=== PATIENT | male | born 2000 ===

== ENCOUNTER 2018-01-17 07:40 | Emergency (ER) | payer OTHER ==
--- NOTE | 2018-01-17 08:25 | UC ---
Throat Pain/Nasal Jorge HPI - HPI Summary HPI Summary: The patient is 17-year-old male who has been ill with a sore throat for about a week and a half. He may be running a fever from time to time. It is getting progressively more hard for him to swallow. He has noted swollen glands that have been worsening over the past few days. As no abdominal pain. He has no nausea vomiting or diarrhea. He has not had mono. - History of Current Complaint Chief Complaint: UCRespiratory Stated Complaint: SORE THROAT Time Seen by Provider: 01/17/18 08:00 Hx Obtained From: Patient Onset/Duration: Gradual Onset, Lasting Days - 10 Severity: Moderate Pain Intensity: 7 Pain Scale Used: 0-10 Numeric Associated Signs & Symptoms: Positive: Fever - Allergies/Home Medications Allergies/Adverse Reactions: Allergies Allergy/AdvReac Type Severity Reaction Status Date / Time cefad[place] [facility] [place]ergy Hives Verified 01/17/18 07:56 gluten Allergy GI Upset Verified 01/17/18 07:56 NSAIDS (Non-Steroidal Allergy Hives Verified 01/17/18 07:56 Anti-Inflamma nut - unspecified Allergy Anaphylatic Verified 01/17/18 07:56 Shock soy Allergy GI Upset Verified 01/17/18 07:56 Home Medications: Home Medications EPINEPHrine [Epipen] 1 unit IM ONCE PRN 01/17/18 [History Confirmed 01/17/18] Syringe with Needle, 1 ml [Allergy Syringe] 1 unit IM MONTHLY 01/17/18 [History Confirmed 01/17/18] PMH/Surg Hx/FS Hx/Imm Hx Previously Healthy: Yes - Surgical History Surgical History: None - Family History Known Family History: Positive: Hypertension - Social History Alcohol Use: None Substance Use Type: None Smoking Status (MU): Never Smoked Tobacco Review of Systems Constitutional: Fever, Fatigue Skin: Negative Eyes: Negative ENT: Sore Throat Respiratory: Negative Cardiovascular: Negative Gastrointestinal: Negative Genitourinary: Negative Motor: Negative Neurovascular: Negative Musculoskeletal: Negative Neurological: Negative Psychological: Negative All Other Systems Reviewed And Are Negative: Yes Physical Exam Triage Information Reviewed: Yes Appearance: Well-Appearing, No Pain Distress, Well-Nourished Vital Signs: Initial Vital Signs Temp 98.1 F 01/17/18 07:50 Pulse 95 01/17/18 07:50 Resp 18 01/17/18 07:50 BP 144/88 01/17/18 07:50 Pulse Ox 99 01/17/18 07:50 Eyes: Positive: Conjunctiva Clear ENT: Positive: Hearing grossly normal, TMs normal, Tonsillar swelling, Tonsillar exudate, Uvula midline. Negative: Nasal congestion, Nasal drainage, Trismus, Muffled voice, Hoarse voice, Sinus tenderness Dental Exam: Normal Neck: Positive: Supple, Enlarged Nodes @ - ant and post cervical Respiratory: Positive: Lungs clear, Normal breath sounds, No respiratory distress, No accessory muscle use Cardiovascular: Positive: RRR, No Murmur Abdomen Description: Positive: Nontender, No Organomegaly, Soft, Hepatomegaly, Splenomegaly. Negative: CVA Tenderness (R), CVA Tenderness (L), Distended, Guarding Bowel Sounds: Positive: Present Musculoskeletal: Positive: Strength Intact, ROM Intact Neurological: Positive: Alert, Muscle Tone Normal Psychological Exam: Normal Skin Exam: Normal Diagnostics - Laboratory Diagnostic Studies Completed/Ordered: strep x three: invalid Throat Pain/Nasal Course/Dx - Differential Dx/Diagnosis Provider Diagnoses: acute tonsillitis. suspect viral. suspect MONO Discharge - Sign-Out/Discharge Documenting (check all that apply): Patient Departure All imaging exams completed and their final reports reviewed: No Studies - Discharge Plan Condition: Stable Disposition: HOME Patient Education Materials: Tonsillitis (ED), Mononucleosis (ED) Referrals: No Primary Care Phys,NOPCP [Primary Care Provider] - Additional Instructions: I suspect mono blood work is pending a throat culture is pending rest fluids tylenol or advil for pain warm salt water gargles chloreseptic spray may help recheck for new or worsening symptoms you BP is a little high here recheck in 2-12 weeks your pattern of swollen glands is typical for a viral tonsillitis like MONO - Billing Disposition and Condition Condition: STABLE Disposition: Home
[2018-01-17 09:46] VITALS: BP 144/75
[2018-01-17 12:54] LABS: Hematocrit 45 % (42-52); Hemoglobin 14.7 g/dl (14.0-18.0); Mean Corpuscular HGB Conc 33 g/dl (31-36); Mean Corpuscular Hemoglobin 28 pg (27-31); Mean Corpuscular Volume 86 fL (80-94); Mean Platelet Volume 9.4 um3 (7.4-10.4); Platelet Count 197 10^3/ul (150-450); Red Blood Count 5.21 10^6/ul (4.00-5.40); Red Cell Distribution Width 13 % (10.5-15); White Blood Count 14.4 10^3/ul (3.5-10.8)
[2018-01-17 14:17] LABS: ABS Basophils 0.1 10^3/ul (0-0.2); ABS Eosinophils 0.1 10^3/ul (0-0.6); ABS Lymphocytes 5.5 10^3/ul (1.0-4.8); ABS Neutrophils 6.7 10^3/ul (1.5-7.7)
[2018-01-17 14:20] LABS: ABS Basophils 0 10^3/ul (0-0.2); ABS Neutrophils 5.5 10^3/ul (1.5-7.7); Monocytes % 9 % (0-7)
--- NOTE | 2018-01-18 10:26 | UC ---
- Progress Note Progress Note: Blood work came back from January 17, 2018 showing a positive Monospot. The white blood cell count was also elevated at 14.4 thousand and some elevated lymphocytes also consistent with mononucleosis. Nursing to call the patient and let him know that he is mononucleosis. Discharge - Sign-Out/Discharge Documenting (check all that apply): Patient Departure All imaging exams completed and their final reports reviewed: No Studies - Discharge Plan Condition: Stable Disposition: HOME Prescriptions: predniSONE [Prednisone 20 MG TAB] 60 mg PO DAILY #9 tab Patient Education Materials: Mononucleosis (ED), Tonsillitis (ED) Referrals: No Primary Care Phys,NOPCP [Primary Care Provider] - Additional Instructions: I suspect mono blood work is pending a throat culture is pending rest fluids tylenol or advil for pain warm salt water gargles chloreseptic spray may help recheck for new or worsening symptoms you BP is a little high here recheck in 2-12 weeks your pattern of swollen glands is typical for a viral tonsillitis like MONO - Billing Disposition and Condition Condition: STABLE Disposition: Home
--- NOTE | 2018-01-19 18:48 | UC ---
- Progress Note Progress Note: throat cx normal palmer no change keya 01/19/2018 Discharge - Sign-Out/Discharge Documenting (check all that apply): Post-Discharge Follow Up All imaging exams completed and their final reports reviewed: No Studies - Discharge Plan Condition: Stable Disposition: HOME Prescriptions: predniSONE [Prednisone 20 MG TAB] 60 mg PO DAILY #9 tab Patient Education Materials: Mononucleosis (ED), Tonsillitis (ED) Referrals: No Primary Care Phys,NOPCP [Primary Care Provider] - Additional Instructions: I suspect mono blood work is pending a throat culture is pending rest fluids tylenol or advil for pain warm salt water gargles chloreseptic spray may help recheck for new or worsening symptoms you BP is a little high here recheck in 2-12 weeks your pattern of swollen glands is typical for a viral tonsillitis like MONO - Billing Disposition and Condition Condition: STABLE Disposition: Home
== END 2018-01-17 09:55 | disposition home or self-care (01) ==
LOC: UCEAST 07:40
DX: J03.90 Acute tonsillitis, unspecified (principal); Z88.1 Allergy status to other antibiotic agents; Z88.6 Allergy status to analgesic agent; Z91.018 Allergy to other foods
CPT/HCPCS: 36415; 85025; 85060; 86308; 87070; 87077; 87651; 99202; G0463

== ENCOUNTER 2018-03-04 18:47 | Emergency (ER) | payer OTHER ==
[2018-03-04 18:59] VITALS: BP 146/84
[2018-03-04] MEDS ORDERED: Acetaminophen TAB* 325 MG PO ONE (19:04)
--- NOTE | 2018-03-04 19:10 | UC ---
Throat Pain/Nasal Jorge HPI - HPI Summary HPI Summary: uri sx and conjunctivitis began 2 days ago----now has sore throat and fever--- body aches, no illness exposures---no recent travel, no nausea, vomiting or diarrhea - History of Current Complaint Chief Complaint: UCRespiratory Stated Complaint: SORE THROAT Time Seen by Provider: 03/04/18 18:56 Hx Obtained From: Patient Onset/Duration: Sudden Onset Severity: Moderate Pain Intensity: 4 Pain Scale Used: 0-10 Numeric Cough: None Associated Signs & Symptoms: Positive: Fever - Allergies/Home Medications Allergies/Adverse Reactions: Allergies Allergy/AdvReac Type Severity Reaction Status Date / Time [facility] [[facility] Allergy Hives Verified 03/04/18 18:54 gluten Allergy GI Upset Verified 03/04/18 18:54 NSAIDS (Non-Steroidal Allergy Hives Verified 03/04/18 18:54 Anti-Inflamma nut - unspecified Allergy Anaphylatic Verified 03/04/18 18:54 Shock soy Allergy GI Upset Verified 03/04/18 18:54 Home Medications: Home Medications Ofloxacin 0.3% (Eye Drop) [Ocuflox OPTH 0.3% (Eye Drop)] 1 - 2 drop .SEE DIRECTIONS 03/04/18 [History Confirmed 03/04/18] PMH/Surg Hx/FS Hx/Imm Hx Previously Healthy: Yes - Surgical History Surgical History: None - Family History Known Family History: Positive: Hypertension - Social History Occupation: Student Lives: Dormitory/Roommates Alcohol Use: Rare Substance Use Type: None Smoking Status (MU): Never Smoked Tobacco Review of Systems All Other Systems Reviewed And Are Negative: Yes Constitutional: Positive: Fever Skin: Positive: Negative Eyes: Positive: Eye Redness ENT: Positive: Sore Throat Respiratory: Positive: Negative Cardiovascular: Positive: Negative Gastrointestinal: Positive: Negative Genitourinary: Positive: Negative Motor: Positive: Negative Neurovascular: Positive: Negative Musculoskeletal: Positive: Arthralgia Neurological: Positive: Negative Psychological: Positive: Negative Is Patient Immunocompromised?: No Physical Exam Triage Information Reviewed: Yes Appearance: Well-Nourished, Ill-Appearing - mild, Pain Distress - mild Vital Signs: Initial Vital Signs Temp 101.7 F 03/04/18 18:55 Pulse 116 03/04/18 18:55 Resp 18 03/04/18 18:55 BP 146/84 03/04/18 18:55 Pulse Ox 100 03/04/18 18:55 Eye Exam: Other Eyes: Positive: Discharge - left eye ENT Exam: Normal ENT: Positive: Normal ENT inspection, Hearing grossly normal, Pharynx normal, TMs normal. Negative: Nasal congestion, Tonsillar swelling, Tonsillar exudate, Trismus, Muffled voice, Hoarse voice Dental Exam: Normal Neck exam: Normal Neck: Positive: Supple, Nontender, No Lymphadenopathy Respiratory Exam: Normal Respiratory: Positive: Chest non-tender, Lungs clear, Normal breath sounds, No respiratory distress, No accessory muscle use Cardiovascular Exam: Normal Cardiovascular: Positive: RRR, No Murmur, Pulses Normal, Brisk Capillary Refill Musculoskeletal Exam: Normal Musculoskeletal: Positive: Strength Intact, ROM Intact, No Edema Neurological Exam: Normal Neurological: Positive: Alert, Muscle Tone Normal Psychological Exam: Normal Skin Exam: Normal Diagnostics - Laboratory Diagnostic Studies Completed/Ordered: strep negative, influenza a/b negative Throat Pain/Nasal Course/Dx - Course Assessment/Plan: rest increase fluids, tylenol, ibuprofen continue eye drops follow with pcp or at [facility] - Differential Dx/Diagnosis Provider Diagnoses: fever, viral illness, elevated blood pressure related to illness Discharge - Sign-Out/Discharge Documenting (check all that apply): Patient Departure All imaging exams completed and their final reports reviewed: No Studies - Discharge Plan Condition: Stable Disposition: HOME Patient Education Materials: Fever in Adults (ED), Viral Syndrome (ED), Cold Symptoms (ED), Conjunctivitis (ED) Referrals: [facility] [Outside] - If Needed - Billing Disposition and Condition Condition: STABLE Disposition: Home - Attestation Statements Provider Attestation: I was available for consult. This patient was seen by the CRISTOFER. The patient was not presented to, seen by, or examined by me. -Elvin
== END 2018-03-04 20:00 | disposition home or self-care (01) ==
LOC: UCEAST 18:47
DX: B34.9 Viral infection, unspecified (principal); R50.9 Fever, unspecified; R03.0 Elevated blood-pressure reading, without diagnosis of hypertension; J02.9 Acute pharyngitis, unspecified; Z88.1 Allergy status to other antibiotic agents; Z88.6 Allergy status to analgesic agent; Z91.018 Allergy to other foods
CPT/HCPCS: 87651; 99212; A9270-GY; G0463